=== PATIENT | female | born 1995 | race Caucasian/White ===

== ENCOUNTER 2025-03-23 18:00 | Emergency (ER) | payer OTHER ==
[~2025-03-23] VITALS: Ht 162.6 cm; Wt 61.0 kg
[2025-03-23 18:22] VITALS: O2SAT 99
[2025-03-23] MEDS: SODIUM CHLORIDE 0.9% 1,000 ML IV ONE (18:30)
[2025-03-23] MEDS ORDERED: PANTOPRAZOLE SODIUM 40 MG/VIAL IV ONE (18:30)
[2025-03-23 19:26] LABS: CLARITY URINE CLEAR (CLEAR); COLOR URINE YELLOW (YELLOW); GLUCOSE URINE NEGATIVE (NEGATIVE); KETONES URINE 1+ (NEGATIVE); LEUKOCYTE ESTERASE URINE 2+ (NEGATIVE); NITRITE URINE NEGATIVE (NEGATIVE); OCCULT BLOOD URINE NEGATIVE (NEGATIVE); PH URINE 6.5 (4.5-8.0); PROTEIN URINE NEGATIVE (NEGATIVE); SPECIFIC GRAVITY URINE 1.023 (1.005-1.030); UROBILINOGEN URINE 1.0 E.U./dL (0.2-1.0)
[2025-03-23 19:38] LABS: BASOPHILS % 0.4 % (0.0-2.0); EOSINOPHILS % 2.0 % (0.0-5.0); HEMATOCRIT. 39.6 % (36.0-48.0); HEMOGLOBIN. 13.5 g/dL (12.0-16.0); LYMPHOCYTES % 31.1 % (20.0-50.0); MEAN PLATELET VOLUME 8.4 fl (7.4-10.4); MONOCYTES % 9.9 % (2.0-8.0); NEUTROPHILS % 56.6 % (40.0-76.0); PLATELET 353 x1000/uL (130-400); RED BLOOD CELL COUNT 4.61 mill/uL (4.2-5.4); RED CELL DISTRIBUTION WIDTH 12.3 % (11.6-14.6)
[2025-03-23 19:48] LABS: BACTERIA URINE 2+; RBC URINE 0-2 /hpf (0-2); SQUAMOUS EPITHELIAL CELL URINE 1+ /lpf (RARE/1+)
[2025-03-23 19:51] LABS: INR 0.9
[2025-03-23 19:53] LABS: CREATININE 0.7 mg/dL (0.6-1.0)
[2025-03-23 19:54] LABS: UREA NITROGEN BLOOD 10 mg/dL (9-23)
[2025-03-23 19:55] LABS: ASPARTATE AMINOTRANSFERASE 12 IU/L (<34); TROPONIN I HIGH SENSITIVITY < 4 ng/L (3.0-34)
[2025-03-23 19:56] LABS: BILIRUBIN DIRECT < 0.1 mg/dL (<=3.0); BILIRUBIN TOTAL 0.3 mg/dL (0.1-1.0); PROTEIN TOTAL 7.3 g/dL (6.0-8.3)
[2025-03-23] MEDS: PANTOPRAZOLE SODIUM 40 MG/VIAL IV SCH (20:46)
[2025-03-23 22:42] VITALS: BP 112/67; PULSE 92; RESP 16; TEMP 36.7; O2SAT 99
[2025-03-23] MEDS ORDERED: IOHEXOL-350 100 ML BOTTLE ONE (23:37)
== END 2025-03-23 22:43 | disposition home or self-care (01) ==
LOC: ER 18:00 → CMPBEDREQ 03-24 11:54
DX: K92.1 Melena (principal); R07.9 Chest pain, unspecified
CPT/HCPCS: 99285; 74174; 96365; 71045; 96361; 80076; 80048; 81003; 81025; 83690; 85025; 85610; 85730; 86850; 86900; 86901; 84484; 36415; 93005; Q9967; J2470; J7030